=== PATIENT | male | born 1990 | race Caucasian/White ===

== ENCOUNTER 2021-12-20 11:48 | Emergency (ER) | payer OTHER ==
[~2021-12-20] VITALS: Ht 185.4 cm; Wt 65.9 kg
[2021-12-20] MEDS ORDERED: ADDE10CA3 PO (12:09)
[2021-12-20 12:14] LABS: BASO % 0.7 % (0.0-1.0); EOS # 0.2 10^3/uL (0.0-0.5); EOS % 3.7 % (0.0-3.0); HEMATOCRIT 41.1 % (42.0-52.0); HEMOGLOBIN 14.8 g/dl (13.5-17.5); LYMPH % 17.2 % (24.0-44.0); MEAN CORPUSCULAR HEMOGLOBIN 33.1 pg (27.0-33.0); MEAN CORPUSCULAR VOLUME 91.9 fl (80.0-96.0); MONO # 0.4 10^3/uL (0.0-0.8); MONO % 7.4 % (2.0-8.0); NEUTROPHILS % 70.6 % (36.0-66.0); PLATELET COUNT, AUTOMATED 190 10^3/uL (150-450); RED BLOOD COUNT 4.47 10^6/uL (4.30-6.10); WHITE BLOOD COUNT 5.6 10^3/uL (4.0-10.0)
[2021-12-20] MEDS ORDERED: NS 1,000 ML IV ONE (12:30)
[2021-12-20 12:52] LABS: BLOOD UREA NITROGEN 7 MG/DL (7-18); CALCIUM LEVEL 7.1 MG/DL (8.5-10.1); CARBON DIOXIDE LEVEL 27 MEQ/L (21-32); CHLORIDE LEVEL 116 MEQ/L (98-107); FREE T4 0.96 NG/DL (0.76-1.46); GLOMERULAR FILTRATION RATE > 60.0 (>60); GLUCOSE, FASTING 86 MG/DL (70-100); MAGNESIUM LEVEL 1.5 MG/DL (1.8-2.4); POTASSIUM SERUM 3.8 MEQ/L (3.5-5.1); SODIUM LEVEL 145 MEQ/L (136-145)
[2021-12-20] MEDS ORDERED: MAG SULF 1GM/100ML (MAG RUN) 1 GM in IV 1 EA IV ONE (13:10)
[2021-12-20] MEDS ORDERED: KETOROLAC 30 MG/ML 1ML VIAL IV ONE (16:30)
[2021-12-20] MEDS ORDERED: methocarbamoL 750 MG TAB PO ONE (16:30)
[2021-12-20 17:15] VITALS: BP 109/57
[2021-12-20] MEDS ORDERED: METH-1165 PO (17:37)
[2021-12-20] MEDS ORDERED: KETO10TAB PO (17:37)
== END 2021-12-20 17:47 | disposition home or self-care (01) ==
LOC: EDBD 11:48 → M ED 11:48
DX: M54.42 Lumbago with sciatica, left side (principal); V48.0XXA Car driver injured in noncollision transport accident in nontraffic accident, initial encounter; R55 Syncope and collapse; B97.81 Human metapneumovirus as the cause of diseases classified elsewhere; I45.19 Other right bundle-branch block; M50.322 Other cervical disc degeneration at C5-C6 level; M50.222 Other cervical disc displacement at C5-C6 level; M51.27 Other intervertebral disc displacement, lumbosacral region; M48.02 Spinal stenosis, cervical region; F90.9 Attention-deficit hyperactivity disorder, unspecified type; Z79.899 Other long term (current) drug therapy
CPT/HCPCS: 70450; 72125; 72131; 80048; 83735; 84439; 84443; 84484; 85025; 87798; 93005; 93041; 94760; 96361; 96365; 96375; 99285; J1885; J3475

== ENCOUNTER → 2022-02-20 | Outpatient (CLI) | payer OTHER ==
[~2022-02-20] MED LIST: ADDE10CA3 PO; KETO10TAB PO; METH-1165 PO
== END ==
LOC: M SOG 08:04
PROVIDERS: ATTEND Orthopaedic Surgery
DX: Z47.89 Encounter for other orthopedic aftercare (principal)

== ENCOUNTER → 2022-04-28 | Outpatient (REF) | LOC: M PLAIMG 08:58 | PROVIDERS: ATTEND Internal Medicine | DX: Z00.00 Encounter for general adult medical examination without abnormal findings (principal) ==